=== PATIENT | male | born 1990 | race Caucasian/White ===

== ENCOUNTER 2019-11-03 18:07 | Emergency (ER) | payer BC, SELFPAY ==
[2019-11-03 18:16] VITALS: BP 126/76; PULSE 75; RESP 18; TEMP 36.4; O2SAT 100
--- NOTE | 2019-11-03 18:22 | ED.GENADULT ---
HPI - General Adult General Chief complaint: Urogenital-Male Stated complaint: Testicle Pain Time Seen by Provider: 11/03/19 18:23 Source: patient and RN notes reviewed Mode of arrival: ambulatory Limitations: no limitations History of Present Illness HPI narrative: This is a 29 years old male presents to the office for an evaluation of left testicle pain. Stated, about 3 weeks ago he had an sudden onset of sharp pain when his son(3years old) sat on his labs, while he was lying on the recliner. Pain was so intense then that he has to push his sign off from him. Then pain has gotten better on its own however it came back more intense after he did a heavy lifting about a week ago. Denies any urinary symptoms include discharge, burning, or hematuria. Denies history of inguinal hernia. Denies any direct trauma or injury. Admits to history of vasectomy. Denies concern for STD. Related Data Home Medications Medication Instructions Recorded Confirmed No Home Medications 11/03/19 11/03/19 Allergies Allergy/AdvReac Type Severity Reaction Status Date / Time No Known Allergies Allergy Verified 11/03/19 18:21 Review of Systems Review of Systems: Narrative: CONSTITUTIONAL: Denies fever ENT: Denies congestion CARDIOVASCULAR: Denies chest pain RESPIRATORY: Denies cough GASTROINTESTINAL: Denies abdominal pain, nausea, vomiting, diarrhea. GENITOURINARY: Denies urinary symptoms or discharge or penile lesions SKIN: Denies rash MUSCULOSKELETAL: Denies acute back pain NEUROLOGIC: Denies lightheaded PMFSH Social History Social History Smoking status: Never smoker Comments At time of signature, I agree with nursing past medical, surgical, social and family history. There is no relevant family history pertinent to the presenting complaint. Exam Narrative: Exam Narrative: GENERAL: This is a well-nourished, well-developed patient, in no apparent distress. CARDIOVASCULAR: Regular rate and rhythm without murmurs, gallops, or rubs. RESPIRATORY: Clear to auscultation. Breath sounds equal bilaterally. No wheezes, rales, or rhonchi. GASTROINTESTINAL: Abdomen soft, non-tender, nondistended. Bowel sounds are active. No hepato-splenomegaly, or palpable masses. No guarding. : left groin is normal; no lymphandenpathy/swelling/erythema, scrotal normal. Left scrotal appear slight swelling with erythema, tender to palpation; no obvious nodule noted. No hernia noted. Exam [employer] by nurse Arianna. NEURO: awake, alert, and oriented to person, place and time. There were no obvious focal neurologic abnormalities. Steady gait Hinckley Coma Scale Eye Opening: Spontaneous 4 Thaddeus Coma Scale Motor: Obeys Commands 6 Hinckley Coma Scale Verbal: Oriented 5 Course Vital Signs Vital signs: Vital Signs Temperature 97.6 F 11/03/19 18:16 Pulse Rate 75 11/03/19 18:16 Respiratory Rate 18 11/03/19 18:16 Blood Pressure 126/76 11/03/19 18:16 Pulse Oximetry 100 11/03/19 18:16 Temperature 97.6 F 11/03/19 18:16 Pulse Rate 75 11/03/19 18:16 Respiratory Rate 18 11/03/19 18:16 Blood Pressure 126/76 11/03/19 18:16 Pulse Oximetry 100 11/03/19 18:16 Transfer Transfered to: [place] Transportation: Other (private car) Transfer rationale: diagnostic test Accepting physician: Dr. Love Medical Decision Making [facility] Narrative Medical decision making narrative: Urine test show no obvious signs of hematuria, or bacteremia at this time; recommend ER for further evaluation to rule out torsion. Patient agreed to go to the nearest ER, will private vehicle to [place]. Differential Diagnosis Differential Diagnosis: Cystitis, Nephritis, epididymitis, torsion Vital Signs Vital Signs: Vital Signs Temperature 97.6 F 11/03/19 18:16 Pulse Rate 75 11/03/19 18:16 Respiratory Rate 18 11/03/19 18:16 Blood Pressure 126/76 11/03/19 18:16 Pulse Oximetry 100 11/02
== END 2019-11-03 18:50 | disposition short-term general hospital (02) ==
PROVIDERS: Emergency Provider Nurse Practitioner; PCP Family Medicine
DX: N50.812 Left testicular pain (principal); Z98.52 Vasectomy status
CPT/HCPCS: 81003; 99212; G0463

== ENCOUNTER 2019-11-03 19:00 | Emergency (ER) | payer BC, SELFPAY ==
--- NOTE | ~2019-11-03 | US_ITS ---
EXAMINATION: US scrotum doppler DATE: 11/03/2019 21:20 INDICATION: Left testicular pain. TECHNIQUE: Grayscale and Doppler ultrasound images of the testes were obtained. COMPARISON: None. FINDINGS: The right testis measures 4.1 x 4.1 x 2.5 cm. The left testis measures 3.7 x 2.2 x 3.5 cm. There is normal vascular flow to both testes. The right epididymis is normal with normal vascular devante w. The left epididymis demonstrates asymmetric enlargement and hypoechogenicity in the tail with norm al vascularity. There is no hydrocele. There is a left-sided varicocele. IMPRESSION: 1. Left-sided epididymitis. 2. Left-sided varicocele. Reviewed, dictated and finalized at location A.
[2019-11-03 19:09] VITALS: BP 136/84; PULSE 64; RESP 16; TEMP 36.4; O2SAT 100
--- NOTE | 2019-11-03 19:14 | ED.MALEGU ---
HPI - Male Genitourinary General Chief complaint: Urogenital-Male Stated complaint: testicle pain Time Seen by Provider: 11/03/19 19:03 Source: patient Mode of arrival: ambulatory Limitations: no limitations History of Present Illness HPI Narrative: A 29 y/o pt has presented to the ED with pain in his lt testicle. Pt states that 2 to 3 weeks ago, his child struck him in this area; however, the pain became severe 2 days ago while he was carrying 80 lb bags of concrete. Pt describes the pain as the worst pain he has ever felt before. Pt went to [facility] and gave a urine sample. Pt was sent to the ED by Urgent Care to rule out a testicular torsion. Pt denies any chance of STD's or discharge from penis. Pt also denies N/V/D. Pt reports having a vasectomy in the past year, but does not remember the exact date. Complaint: testicle pain Onset (ago): day(s) (2) Location: left testicle Severity: severe Exacerbating factors: palpation Context: other (lifting heavy object) Related Data Allergies Allergy/AdvReac Type Severity Reaction Status Date / Time No Known Allergies Allergy Verified 11/03/19 18:21 Review of Systems Review of Systems: All systems reviewed & are unremarkable except as noted in HPI and below Gastrointestinal: Gastrointestinal: Denies diarrhea, Denies nausea and Denies vomiting Genitourinary: Genitourinary: Denies penile discharge, Reports testicular pain (left) and Reports other (denies any chance of STD) PMFSH Past Medical History Medical History (Updated 11/03/19 @ 21:38 by Mirza Tate MD) No pertinent past medical history Surgical History Surgical History (Updated 11/03/19 @ 19:27 by Kushal Muniz) H/O vasectomy Social History Social History Smoking status: Never smoker Exam Const: General: healthy appearing, no acute distress and well developed Nutritional Appearance: well nourished Orientation/consciousness: patient oriented x3 (alert) and Other orientation findings (Alert) Limitations: no limitations HENMT: Head: normocephalic and atraumatic Ears: external ears normal General nose exam: No nasal discharge present and no epistaxis Face and sinus: face symmetric Mouth: Yes lip normal, Yes tongue normal and Yes moist mucous membranes Eyes: Conjunctivae: conjunctivae normal Sclera: sclerae normal EOM: EOMs intact bilaterally Neck: Neck: full ROM Resp: Effort & Inspection: normal respiratory effort GI: Inspection: non-distended : Male General Exam: No inguinal lymphadenopathy Scrotum: cremasteric reflex present (intact) and no inguinal hernias Testes: epididymal tenderness (posterior) Skin: General skin exam: normal color and no rashes or lesions noted Neuro: General: patient oriented x3 (alert), moves all extremities and no focal motor deficits Cranial nerves: Yes facial symmetry Speech: normal speech Motor exam (neuro): Motor abnormalities not present Extrem: General: normal to inspection, full ROM and no pedal edema Psych: Affect: normal affect Course Vital Signs Vital signs: Vital Signs Temperature 36.4 C L 11/03/19 19:09 Pulse Rate 64 11/03/19 19:09 Respiratory Rate 16 11/03/19 19:09 Blood Pressure 136/84 11/03/19 19:09 Pulse Oximetry 100 11/03/19 19:09 Temperature 36.4 C L 11/03/19 19:09 Pulse Rate 64 11/03/19 19:09 Respiratory Rate 16 11/03/19 19:09 Blood Pressure 136/84 11/03/19 19:09 Pulse Oximetry 100 11/03/19 19:09 MDM - Male Genitourinary Lab Data Labs: Lab Results 11/03/19 Range/Units 19:58 C.trachomatis RNA (TMA) Pending N.gonorrhoeae RNA (TMA) Pending Imaging Data Radiologist's impression: ITS Impressions Scrotum Ultrasound 11/03/19 21:21 IMPRESSION: 1. Left-sided epididymitis. 2. Left-sided varicocele. Discharge Plan Discharge Clinical Impression: Epididymitis Patient Disposition: Home, Self-Care
[2019-11-03 20:30] VITALS: BP 152/72; PULSE 66; RESP 18; O2SAT 99
[2019-11-03] MEDS: cefTRIAXone 250 MG VIAL IM (22:09)
[2019-11-03 22:28] VITALS: BP 136/78; PULSE 74; RESP 18; TEMP 36.8; O2SAT 99
== END 2019-11-03 22:30 | disposition home or self-care (01) ==
PROVIDERS: Emergency Provider Emergency Medicine; PCP Family Medicine
DX: N45.1 Epididymitis (principal); I86.1 Scrotal varices
CPT/HCPCS: 76870; 87491; 87591; 93976; 96372; 99284; J0696

== ENCOUNTER 2020-07-05 10:16 | Outpatient (NON) | payer OTHER, SELFPAY ==
[2020-07-06 01:18] LABS: SARS-CoV-2 RNA PCR Positive
== END 2020-07-05 10:17 ==
LOC: ANHCOVIDDT 10:19
PROVIDERS: PCP Family Medicine; Visit Provider Family Medicine
DX: U07.1 COVID-19 (principal); R43.2 Parageusia; R51.9 Headache, unspecified; R09.81 Nasal congestion
CPT/HCPCS: 87635; C9803; U0003

== ENCOUNTER 2021-04-11 20:51 | Emergency (ER) | payer OTHER, SELFPAY ==
[2021-04-11 21:11] VITALS: BP 124/73; PULSE 69; RESP 16; TEMP 36.7; O2SAT 99
--- NOTE | 2021-04-12 00:23 | ED_ITS ---
HPI - Skin/Abscess/Foreign Bdy General Chief complaint: Skin/Abscess/Foreign Body Stated complaint: bug bite Time Seen by Provider: 04/12/21 00:16 History of Present Illness HPI narrative: Pt is a 30 y/o CM who presents to the ER with bug bite to his right posterior thigh. [place] himself get bitten on 04/10. Pain increased, and redness worsened over 24 hours. Has firmness as well. No f/chills/n/v. Related Data Allergies Allergy/AdvReac Type Severity Reaction Status Date / Time No Known Allergies Allergy Verified 04/12/21 00:24 Review of Systems Constitutional: Constitutional: Denies chills, Denies fever(s) and Denies weakness Musculoskeletal: Musculoskeletal: Denies myalgias and Denies muscle cramps Integumentary/Breasts: Skin/Breast: Denies pruritus and Reports erythema Neurologic: Denies numbness and Denies weakness PMFSH Past Medical History Medical History (Updated 04/12/21 @ 00:38 by Nathaniel Valdez MD) No pertinent past medical history Surgical History Surgical History (Updated 11/03/19 @ 19:27 by Kushal Muniz) H/O vasectomy Social History Social History Smoking status: Never smoker Exam Narrative: GENERAL: Well-appearing, well-nourished, and in no acute distress. HEAD: Normocephalic, atraumatic. EXTREMITIES: Normal range of motion. No edema. SKIN: Warm, dry. Right posterior thigh with central pustule that is actively draining. Surrounding cellulitis with induration noted. Tender to palpation. NEURO: Alert and oriented x3. PSYCH: Normal mood and affect. Course Course Emergency Course: We'll treat outpatient with Bactrim. Discharge. Recommend warm compresses. Vital Signs Vital signs: Vital Signs Temperature 98.1 F 04/11/21 21:11 Pulse Rate 69 04/11/21 21:11 Respiratory Rate 16 04/11/21 21:11 Blood Pressure 124/73 04/11/21 21:11 Pulse Oximetry 99 04/11/21 21:11 Temperature 98.1 F 04/11/21 21:11 Pulse Rate 69 04/11/21 21:11 Respiratory Rate 16 08/30/21 21:11 Blood Pressure 124/73 04/11/21 21:11 Pulse Oximetry 99 04/11/21 21:11 Discharge Plan Discharge Clinical Impression: Abscess or cellulitis of thigh Patient Disposition: Home, Self-Care Condition: Stable Instructions: Antibiotic Form, Cellulitis (ED), Abscess (ED) Additional Instructions: Return to the ER if your redness is spreading despite antibiotic treatment, you develop fever over 100.4 ?F, or you have limited range of motion of your leg due to infection and pain. Prescriptions: New sulfamethoxazole-trimethoprim [Bactrim DS] 800-160 mg tablet 1 tablet PO Q12H Qty: 20 RF: 0 No Action doxycycline hyclate 100 mg capsule 100 mg PO BID Qty: 20 RF: 0 indomethacin 25 mg capsule 25 mg PO TID Qty: 10 RF: 0 Follow-up/Referrals: Reinaldo Desir MD [Primary Care Provider] - 1 Week
[2021-04-12 00:55] VITALS: BP 120/70; PULSE 73; RESP 14; O2SAT 100
== END 2021-04-12 00:54 | disposition home or self-care (01) ==
PROVIDERS: Emergency Provider Emergency Medicine; PCP Family Medicine
DX: L02.415 Cutaneous abscess of right lower limb (principal)
CPT/HCPCS: 99283

== ENCOUNTER 2021-07-30 10:03 | Emergency (ER) | payer OTHER, SELFPAY ==
[2021-07-30 10:22] VITALS: BP 120/77; PULSE 91; RESP 18; TEMP 36.9; O2SAT 100
--- NOTE | 2021-07-30 10:36 | ED.URI ---
HPI - URI/Sore Throat General Chief Complaint: Upper Respiratory Infection Stated Complaint: Sore Throat,Congestion,Cough Source: patient and RN notes reviewed Limitations: no limitations History of Present Illness HPI Narrative: The vaccinated unboosted patient, a non-smoker/nondrinker, presents with upper respiratory symptoms. Patient states he has a shorter half week history of cough, congestion and scratchy throat; family members been diagnosed with strep. No fever, earache; no loss of taste/smell, CP, S OB, vomit/diarrhea, rash. Symptoms are mild worse sleeping/supine Related Data Allergies Allergy/AdvReac Type Severity Reaction Status Date / Time No Known Allergies Allergy Verified 07/30/21 10:29 Review of Systems Review of Systems: General/Constitutional: No weight loss,fever Eyes: N0: Redness,discharge Ears/Nose/Throat: No: Epistaxis,ear discharge Respiratory: Denies: Hemoptysis Gastrointestinal: No Vomiting, Bleeding-rectal Skin: No Lumps, eruption Neurologic: No Focal Weakness,Sz Hematologic: Denies: Petechiae/Purpura Psychiatric: No: Suicida ideationl All Other Systems: Reviewed and Negative [facility] Past Medical History Medical History (Updated 07/30/21 @ 12:47 by Soy Berrios MD) No pertinent past medical history Surgical History Surgical History (Updated 11/03/19 @ 19:27 by Kushal Muniz) H/O vasectomy Social History Social History Smoking status: Never smoker Comments At time of signature, agree with nursing past medical, surgical, social and family history. There is no relevant family history pertinent to the presenting complaint Exam Narrative: General Appearance: Well appearing, Well nourished EYE: PERRLA, Conjunctiva clear Ears: Auditory canal normal, TM normal Nose: Rhinorrhea, Mucousal erythema Mouth/Throat: MM moist, Uvula midline, Pharyngeal erythema Neck: Supple, No adenopathy Respiratory: No respiratory distress, Breath sounds equal, Clear to auscultation Cardiovascular: RRR, No JVD Musculoskeletal: Non tender, Normal strength Skin: Warm, Dry Neurological: A&O x3, CN II-XII intact Psychiatric: Normal mood, Normal affect Course Vital Signs Vital signs: Vital Signs Temperature 98.4 F 07/30/21 10:22 Pulse Rate 91 07/30/21 10:22 Respiratory Rate 18 07/30/21 10:22 Blood Pressure 120/77 07/30/21 10:22 Pulse Oximetry 100 07/30/21 10:22 Temperature 98.4 F 07/30/21 10:22 Pulse Rate 91 07/30/21 10:22 Respiratory Rate 18 07/30/21 10:22 Blood Pressure 120/77 07/30/21 10:22 Pulse Oximetry 100 07/30/21 10:22 Discharge Plan Discharge Clinical Impression: Tonsil pain Patient Disposition: Home, Self-Care Condition: Stable Additional Instructions: Also may use OTC preparations like Flonase, Delsym, Motrin, antihistamines [Claritin, Benadryl]. Prescriptions: New azithromycin 250 mg tablet See Rx Instructions .ROUTE .COMPLEX Qty: 6 RF: 0 benzonatate 100 mg capsule 100 mg PO TID PRN (Reason: cough) Qty: 20 RF: 2 lidocaine HCl [Lidocaine Viscous] 2 % solution 5 ml MUCOUS MEM QID PRN (Reason: pain) Qty: 100 RF: 1 azelastine 137 mcg (0.1 %) aerosol,spray 137 mcg NASAL Q12H Qty: 30 RF: 0 Other Ambulatory Orders: SARS-CoV-2 RNA, Qual RT-PCR (Routine) Location: Determined by Patient Ordered By: Soy Berrios Follow-up/Referrals: Reinaldo Desir MD [Primary Care Provider] -
== END 2021-07-30 10:47 | disposition home or self-care (01) ==
PROVIDERS: Emergency Provider Emergency Medicine; PCP Family Medicine
DX: R07.0 Pain in throat (principal); Z20.822 Contact with and (suspected) exposure to COVID-19; Z98.52 Vasectomy status
CPT/HCPCS: 99213; G0463

== ENCOUNTER 2022-04-24 10:23 | Emergency (ER) | payer OTHER, SELFPAY ==
[2022-04-24 10:58] VITALS: BP 118/68; PULSE 78; RESP 18; TEMP 36.6; O2SAT 100
--- NOTE | 2022-04-24 11:21 | ED.GENADULT ---
HPI - General Adult General Chief complaint: Upper Respiratory Infection Stated complaint: congestion,headache History of Present Illness HPI narrative: 32 y/o male. PMHx None reported. Presents to [facility] today with acute complaints of HAMMOND, fever, mild nasal congestion, and non-productive cough at home in the past 48 hours. He denies focal weakness, neck pain. No sore throat, oatlagia. No chest congestion, chest pain, dyspnea, edema. No GI upset, N/V/D, Abdominal pain. He tells me he has had a young son at home, ill with similar issues in a recent time interval. However, son is now asymtomatic. He wishes to be Flu & Covid tested for work related purposes. No additional acute c/o upon PE. Related Data Home Medications Medication Instructions Recorded Confirmed ascorbic acid (vitamin C) 100 mg 100 mg PO DAILY 04/24/22 04/24/22 tablet atorvastatin 10 mg tablet 10 mg DAILY 04/24/22 04/24/22 cholecalciferol (vitamin D3) 25 25 mcg PO DAILY 04/24/22 04/24/22 mcg (1,000 unit) chewable tablet docosahexaenoic acid (dha)-epa 120 1 cap PO DAILY 04/24/22 04/24/22 mg-180 mg capsule (Fish Oil) Allergies Allergy/AdvReac Type Severity Reaction Status Date / Time No Known Allergies Allergy Verified 04/24/22 11:41 Review of Systems Review of Systems: CONSTITUTIONAL: Subjective fever. No chills, sweats. EYES: Denies visual changes, redness, discharge. ENT: + rhinorrhea, congestion. No sore throat, otalgia. CARDIOVASCULAR: Denies chest pain, palpitations, edema. RESPIRATORY: Denies dyspnea, wheezing. + cough GASTROINTESTINAL: Denies abdominal pain, nausea, vomiting, diarrhea. GENITOURINARY: Denies dysuria, hematuria, abnormal discharge SKIN: Denies rash or itching. MUSCULOSKELETAL: Denies acute back pain, joint pain, or myalgia. NEUROLOGIC: Denies numbness, or focal weakness. PSYCHIATRIC: Denies anxiety or depression. [facility] Past Medical History Medical History No pertinent past medical history Surgical History Surgical History H/O vasectomy Social History Social History Smoking status: Never smoker Exam Narrative: GENERAL: This is a well-nourished, well-developed adult, in no apparent distress. HEAD: normocephalic EYES: PERRL. Sclera clear/white. EARS: External ears normal, auditory canals clear and without drainage, TMs normal. NOSE: External nose normal. Positive Rhinorrhea, no obstruction, nares patent. THROAT: Mucous membranes moist, posterior pharynx clear. No exudates. + PND. NECK: Neck supple, non-tender without lymphadenopathy, masses or thyromegaly. No meningeal signs. CARDIOVASCULAR: Regular rate and rhythm without murmurs, gallops, or rubs. RESPIRATORY: Clear to auscultation. Breath sounds equal bilaterally. No wheezes, rales, or rhonchi. GASTROINTESTINAL: Abdomen soft, non-tender, nondistended. Bowel sounds are active. No guarding. SKIN: warm, intact with no suspicious lesions or rash, good texture and turgor. NEURO: Alert, active, and age appropriate. No focal neurologic deficits. Course Course Level of Care: Express Care Visit Vital Signs Vital signs: Vital Signs Temperature 36.6 C 04/24/22 10:58 Pulse Rate 78 04/24/22 10:58 Respiratory Rate 18 04/24/22 10:58 Blood Pressure 118/68 04/24/22 10:58 Pulse Oximetry 100 04/24/22 10:58 Oxygen Delivery Room Air 04/24/22 10:58 Temperature 36.6 C 04/24/22 10:58 Pulse Rate 78 04/24/22 10:58 Respiratory Rate 18 04/24/22 10:58 Blood Pressure 118/68 04/24/22 10:58 Pulse Oximetry 100 04/24/22 10:58 Oxygen Delivery Room Air 04/24/22 10:58 Medical Decision Making MDM Narrative Medical decision making narrative: -Rapid Strep: Negative. -Sars Covid: Negative. -Influenza: Negative. -His PE is ess
== END 2022-04-24 11:58 | disposition home or self-care (01) ==
PROVIDERS: Emergency Provider Nurse Practitioner Adult Health; PCP Physician Assistant
DX: B34.9 Viral infection, unspecified (principal); Z20.822 Contact with and (suspected) exposure to COVID-19
CPT/HCPCS: 87081; 87426; 87804; 87880; 99213; C9803; G0463

== ENCOUNTER 2022-06-10 16:31 | Emergency (ER) | payer OTHER, SELFPAY ==
[2022-06-10 16:48] VITALS: BP 117/62; PULSE 75; RESP 18; TEMP 36.3; O2SAT 100
--- NOTE | 2022-06-10 17:18 | ED.GENADULT ---
HPI - General Adult General Chief complaint: Urogenital-Male Stated complaint: groin discomfort History of Present Illness HPI narrative: 32 y/o pt has presented to the ED with pain in his left testicle. Pt states that approx 1 mo ago, he accidently hit himself in the genital area while lifting however, the pain has improved since incident. Pt denies any risks for STIs. Hx of vasectomy, date unknown. Hx of epididymitis x2. Today's symptoms identical to previous epididymitis. Denies being followed by urologist. Related Data Home Medications Medication Instructions Recorded Confirmed atorvastatin 10 mg tablet 10 mg DAILY 04/24/22 06/10/22 Allergies Allergy/AdvReac Type Severity Reaction Status Date / Time No Known Allergies Allergy Verified 06/10/22 17:07 Review of Systems Review of Systems: denies fever, sweats, change in appetite, poor p.o. intake, skin color changes, swelling, painful ejaculation, painful intercourse, STD exposure, urinary symptoms, abdominal pain, nausea, vomiting, and diarrhea PMFSH Past Medical History Medical History No pertinent past medical history Surgical History Surgical History H/O vasectomy Social History Social History Smoking status: Never smoker Exam Narrative: Const: General: healthy appearing, no acute distress and well developed Nutritional Appearance: well nourished. A&O x4. HENMT: Head: normocephalic and atraumatic. Ears: external ears normal. Nose: No nasal discharge or epistaxis. Face: facial symmerty is noted. Mouth: Lips, tongue, and mucous membranes are normal. Eyes: Conjunctivae: conjunctivae normal Sclera: sclerae normal EOM: EOMs intact bilaterally Neck: Neck: full ROM Resp: Effort & Inspection: normal respiratory effort GI: Inspection: non-distended : Male General Exam: No lymphadenopathy Scrotum: cremasteric reflex present (intact) and no inguinal hernias Testes: left epididymal tenderness (posterior) Skin: General skin exam: normal color and no rashes or lesions noted Neuro: General: patient oriented x3 (alert), moves all extremities and no focal motor deficits Cranial nerves: Yes facial symmetry Speech: normal speech Motor exam (neuro): Motor abnormalities not present Extrem: General: normal to inspection, full ROM and no pedal edema Psych: Affect: normal affect Course Course Emergency Course: The patient/guardian displays adequate decision making capability and despite a detailed discussion of alternatives, benefits, risks, and consequences refuses all labs and imaging. Level of Care: Express Care Visit Vital Signs Vital signs: Vital Signs Temperature 97.4 F L 06/10/22 16:48 Pulse Rate 75 06/10/22 16:48 Respiratory Rate 18 06/10/22 16:48 Blood Pressure 117/62 06/10/22 16:48 Pulse Oximetry 100 06/10/22 16:48 Oxygen Delivery Room Air 06/10/22 16:48 Temperature 97.4 F L 06/10/22 16:48 Pulse Rate 75 06/10/22 16:48 Respiratory Rate 18 06/10/22 16:48 Blood Pressure 117/62 06/10/22 16:48 Pulse Oximetry 100 06/10/22 16:48 Oxygen Delivery Room Air 06/10/22 16:48 Medical Decision Making Differential Diagnosis Differential Diagnosis: Epididymitis, orchitis, gonorrhea, chlamydia, hydrocele, hematoma, UTI Vital Signs Vital Signs: Vital Signs Temperature 97.4 F L 06/10/22 16:48 Pulse Rate 75 06/10/22 16:48 Respiratory Rate 18 06/10/22 16:48 Blood Pressure 117/62 06/10/22 16:48 Pulse Oximetry 100 06/10/22 16:48 Oxygen Delivery Room Air 06/10/22 16:48 Temperature 97.4 F L 06/10/22 16:48 Pulse Rate 75 06/10/22 16:48 Respiratory Rate 18 06/10/22 16:48 Blood Pressure 117/62 06/10/22 16:48 Pulse Oximetry 100 06/10/22 16:48 Oxygen Delivery Room Air 06/10/22 16:48 reviewed
== END 2022-06-10 17:46 | disposition home or self-care (01) ==
PROVIDERS: Emergency Provider Nurse Practitioner Family; PCP Physician Assistant
DX: N45.1 Epididymitis (principal)
CPT/HCPCS: 99213; G0463

== ENCOUNTER 2022-08-28 12:22 | Emergency (ER) | payer OTHER, SELFPAY ==
--- NOTE | 2022-08-28 12:25 | ED.URI ---
HPI - URI/Sore Throat General Chief Complaint: Upper Respiratory Infection Stated Complaint: Sore Throat,Body Aches Time Seen by Provider: 08/28/22 12:51 Source: patient and RN notes reviewed Mode of arrival: ambulatory Limitations: no limitations History of Present Illness HPI Narrative: 32-year-old male presents concern for sore throat, fever, chills, body aches. Reports multiple members of his household had strep throat in the last several weeks. Reports he took ibuprofen. MD elicited complaint: sore throat Related Data Home Medications Medication Instructions Recorded Confirmed atorvastatin 10 mg tablet 10 mg DAILY 04/24/22 08/28/22 Allergies Allergy/AdvReac Type Severity Reaction Status Date / Time No Known Allergies Allergy Verified 08/28/22 12:30 Review of Systems Review of Systems: CONSTITUTIONAL: Reports malaise, chills, fever. EYES: Denies visual changes, redness, or discharge. ENT: Denies rhinorrhea, congestion, sinus pain, otalgia. Reports sore throat. CARDIOVASCULAR: Denies chest pain, palpitations, or edema. RESPIRATORY: Denies cough. Denies dyspnea. GASTROINTESTINAL: Denies abdominal pain, nausea, vomiting, diarrhea SKIN: Denies rash or itching. MUSCULOSKELETAL: Reports myalgia. NEUROLOGIC: Denies headache. All systems reviewed & are unremarkable except as noted in HPI and below PMFSH Past Medical History Medical History No pertinent past medical history Surgical History Surgical History H/O vasectomy Social History Social History Smoking status: Never smoker Comments At time of signature, agree with nursing past medical, surgical, social and family history. There is no relevant family history pertinent to the presenting complaint Exam Narrative: GENERAL: Well-appearing, well-nourished, and in no acute distress. HEAD: Normocephalic EYES: PERRLA, conjunctivae clear ENT: Nares clear, turbinates edematous and erythematous, clear discharge. Mucous membranes moist. TM pearly mcpherson with dull light reflex bilaterally; no tragal tenderness. Oropharynx not erythematous without lesions. Tonsils not enlarged and without exudate, no drooling, no hoarseness, no trismus, uvula midline. NECK: Supple. No lymphadenopathy CHEST: Clear to auscultation, breath sounds equal. No wheezing, rhonchi, rales, or stridor. No respiratory distress, speaks in full sentences. HEART: Regular rate and rhythm. No murmur heard. SKIN: Warm, dry, no rash. NEURO: Alert and oriented x3. PSYCH: Normal mood and affect Course Course Emergency Course: Patient is aware of diagnosis, understands and agrees to treatment plan. Anticipatory guidance given. Patient agrees to follow-up as directed and is aware of reasons to seek care at the emergency department. Portions of this record may have been created with voice recognition software Level of Care: Express Care Visit Vital Signs Vital signs: Reviewed. MDM - URI/Sore Throat MDM Narrative Medical decision making narrative: Differential diagnosis considered: Hendricks virus, strep pharyngitis, allergic rhinitis, upper respiratory tract infection, sinusitis, rhinosinusitis, nasopharyngitis. viral pharyngitis, otitis media, otitis externa, pneumonia, bronchitis, viral cough syndrome, viral syndrome, and influenza. Exam findings show no acute concerns or changes; patient is non-toxic appearing and is in no distress. Patient is appropriate for outpatient treatment and follow-up. Lab Data Attestation: I reviewed the patient's lab results. Critical Care Time Critical Care Time Critical Care Time: No Discharge Plan Discharge Clinical Impression: Acute streptococcal pharyngitis Patient Disposition: Home, Self-Care Condition: Stable Instructions: Antibiotic Form, Strep Throat (ED) Additional Instru
[2022-08-28 12:31] VITALS: BP 116/63; PULSE 91; RESP 18; TEMP 37.1; O2SAT 100
== END 2022-08-28 13:00 | disposition home or self-care (01) ==
PROVIDERS: Emergency Provider Nurse Practitioner; PCP Physician Assistant
DX: J02.0 Streptococcal pharyngitis (principal)
CPT/HCPCS: 87880; 99213; G0463

== ENCOUNTER 2022-08-31 17:26 | Emergency (ER) | payer OTHER, SELFPAY ==
[2022-08-31 17:37] VITALS: BP 132/69; PULSE 66; RESP 18; TEMP 36.1; O2SAT 100
--- NOTE | 2022-08-31 17:45 | ED.URI ---
HPI - URI/Sore Throat General Chief Complaint: Upper Respiratory Infection Stated Complaint: sorethroat Time Seen by Provider: 08/31/22 17:37 Source: patient Mode of arrival: ambulatory Limitations: no limitations History of Present Illness HPI Narrative: Patient presents today complaining of sore throat. He was diagnosed with strep throat 3 days ago here at [facility] and prescribed Penicillin-Vk. Patient states symptoms have been worsening since this time. Denies cough, shortness of breath, difficulty swallowing, fever. Currently rates his pain 5/10 and has been taking Robitussin without relief. Related Data Home Medications Medication Instructions Recorded Confirmed atorvastatin 10 mg tablet 10 mg DAILY 04/24/22 08/31/22 Allergies Allergy/AdvReac Type Severity Reaction Status Date / Time No Known Allergies Allergy Verified 08/31/22 17:36 Review of Systems Review of Systems: CONSTITUTIONAL: Denies body aches, fever, chills, or sweats. EYES: Denies visual changes, redness, or discharge. ENT: Denies rhinorrhea, congestion, or otalgia.+ sore throat CARDIOVASCULAR: Denies chest pain, palpitations, or edema. RESPIRATORY: Denies cough or dyspnea. GASTROINTESTINAL: Denies abdominal pain, nausea, vomiting, or diarrhea. GENITOURINARY: Denies dysuria or hematuria. SKIN: Denies rash, itching, or wounds. MUSCULOSKELETAL: Denies back pain, joint pain, or myalgia. NEUROLOGIC: Denies headache, numbness, tingling, or weakness. PSYCH: Denies depression or anxiety. PMFSH Past Medical History Medical History No pertinent past medical history Surgical History Surgical History H/O vasectomy Social History Social History Smoking status: Never smoker Comments At time of signature, I have reviewed and agree with nursing past medical, surgical, social and family history unless otherwise noted. Please see nursing chart for further information. There is no relevant family history pertinent to the presenting complaint Exam Narrative: GENERAL: Well-appearing, well-nourished, and in no acute distress. HEAD: Normocephalic, atraumatic. EYES: EOMI. No redness or drainage. Conjunctivae normal. ENT: Mucous membranes pink and moist. Nares clear. No rhinorrhea. TMs normal bilaterally. Throat severely erythematous and edematous. Tonsils 3+ with white exudate. Uvula midline. NECK: Normal AROM. Supple. No lymphadenopathy. CHEST: No respiratory distress. Clear to auscultation. HEART: Regular rate and rhythm. No murmur appreciated. Normal peripheral pulses. EXTREMITIES: Normal range of motion. No edema. SKIN: Warm, dry, no rash. Capillary refill normal. Normal skin turgor. NEURO: No focal deficits. Alert and oriented x3. Gait steady. PSYCH: Normal affect. No signs of depression or anxiety. Course Course Level of Care: Express Care Visit Vital Signs Vital signs: Vital Signs Temperature 96.9 F L 08/31/22 17:37 Pulse Rate 66 08/31/22 17:37 Respiratory Rate 18 08/31/22 17:37 Blood Pressure 132/69 08/31/22 17:37 Pulse Oximetry 100 08/31/22 17:37 Oxygen Delivery Room Air 08/31/22 17:37 Temperature 96.9 F L 08/31/22 17:37 Pulse Rate 66 08/31/22 17:37 Respiratory Rate 18 08/31/22 17:37 Blood Pressure 132/69 08/31/22 17:37 Pulse Oximetry 100 08/31/22 17:37 Oxygen Delivery Room Air 08/31/22 17:37 Reviewed. Pt has been instructed to follow up with his PCP regarding his elevated blood pressure today. MDM - URI/Sore Throat MDM Narrative Medical decision making narrative: As patient's symptoms have not been improving on the penicillin, I will change amount to Augmentin. Instructed him to take ibuprofen [id number] for pain and inflammation. Differential Diagnosis Differential diagnosis: Likely o
== END 2022-08-31 17:52 | disposition home or self-care (01) ==
PROVIDERS: Emergency Provider Nurse Practitioner; PCP Physician Assistant
DX: J02.0 Streptococcal pharyngitis (principal); E78.00 Pure hypercholesterolemia, unspecified; Z98.52 Vasectomy status
CPT/HCPCS: 99213; G0463